=== PATIENT | female | born 1960 ===

== ENCOUNTER 2016-10-20 19:47 | Emergency (ER) | payer MEDICARE, MEDICAID ==
[2016-10-20 18:34] LABS: BASO % 0.3 % (0-2); EOS % 6.8 % (0-7); EOSINOPHIL ABSOLUTE COUNT 0.6 tho/cmm (0.0-0.7); HCT-HEMATOCRIT 29.4 % (34.0-49.0); HGB-HEMOGLOBIN 9.7 gm/dl (12.0-15.5); IMMATURE GRANULOCYTES ABSOLUTE 0.03 tho/cmm (0-0.03); IMMATURE GRANULOCYTES PERCENT 0.3 % (0-0.3); LYMPH % 23.4 % (20-45); LYMPH ABSOLUTE COUNT 2.1 tho/cmm (0.8-4.5); MEAN PLATELET VOLUME 9.9 cmc (9.4-12.4); MONO % 4.3 % (0-12); MONOCYTE ABSOLUTE COUNT 0.4 tho/cmm (0.0-1.2); NEUTROPHIL ABSOLUTE COUNT 5.8 tho/cmm (1.6-8.0); NEUTROPHIL-AUTOMATED 5.8 tho/cmm (1.6-8.0); NEUTROPHILS % 64.9 % (40-80); PLATELET COUNT 221 tho/cmm (150-450); RED BLOOD COUNT 3.34 mil/cmm (4.00-5.20); RED CELL DISTRIBUTION WIDTH 15.3 % (12.4-16.4)
[2016-10-20 18:52] LABS: ALB/GLOB RATIO 0.8 (0.8-2.0); ALBUMIN 3.4 g/dl (3.5-5.0); ALKALINE PHOSPHATASE 131 U/L (33-138); ALT/SGPT 12 U/L (12-78); ANION GAP 23 mmol/L (0-20); AST/SGOT 8 U/L (10-40); BILIRUBIN,TOTAL 0.3 mg/dl (0-1.5); BLOOD UREA NITROGEN 106 mg/dl (6-24); C-REACTIVE PROTEIN 2.6 mg/dl (0-0.9); CALCIUM 6.7 mg/dl (8.5-10.5); CARBON DIOXIDE-VENOUS 17 mmol/L (22-32); CHLORIDE 103 mmol/l (96-110); GLUCOSE 109 mg/dL (70-110); POTASSIUM 4.9 mmol/L (3.7-5.1); SODIUM 138 mmol/L (135-145); eGFR VALUE FOR BLACK 3 mL/Min
[2016-10-20 18:57] LABS: ESR-ERYTHROCYTE SED RATE 69 mm/hr (0-30)
[~2016-10-20 19:47] MED LIST: ADVAIR 2501 DISK W/D; ALBUTEROL INH 0.3 ML AERO NEB; ALBUTEROL INHALER INH; ALBUTEROL0.83 MG/ML INH; ALBUTEROL17 GM; ALBUTEROL2.5 MG/0.1 IH; ALLERGY10 M3 PO; AMARYL; AMARYL2 MG; ANTACID650 MG PO; ANTIVERT25 M1 PO; ARTIFICIAL TEAR15 M8 OP; ATORVASTATIN CA20 M1 PO; B-1100 MG PO; BACTROBAN15 GM TP; BENGAY113 G1 TP; BENGAY85 GM TP; BOOST237 ML PO; CALCIUM ACETAT667 M1 PO; CALCIUM ACETAT667 M3 PO; CALCIUM ACETAT667 MG PO; CALCIUM CARBON600 M2 PO; CERTAGEN1 TAB; CLARITIN10 M2 PO; CLARITIN10 M8 PO; CLARITIN10 MG; CLOTRIMAZOLE15 G2 TP; COZAAR100 M1 PO; COZAAR100 MG PO; COZAAR50 M1 PO; COZAAR50 MG; CPAP; DETROL LA; DETROL LA2 MG; DOCUSATE CALCI100 MG PO; DOCUSATE SODIUM PO; DOK100 M2 PO; EPINEPHRIN0.3 MG/0.2 IM; FAMOTIDINE20 MG; FLUOXETINE HCL20 MG; FLUTICASONE PRO16 G1; FLUTICASONE PRO16 GM NS; FOLIC ACID1 M1 PO; FOLIC ACID1 MG PO; GLIPIZIDE ER10 M1 PO; GLIPIZIDE10 M2 PO; GLYCOLAX527 GM; GUAIFENESIN200 M3 PO; HUMALOG100 U/ML SQ; HYDROCODON-ACE1 EA16 PO; ISONIAZID100 MG PO; K-DUR20 MEQ; KEFLEX250 M2 PO; LANTUS SOL100 UNIT/1 SC; LANTUS SOL100 UNIT/1 SQ; LANTUS100 U/ML SC; LANTUS100 UNITS/ SC; LASIX40 MG; LEVAQUIN250 M3 PO; LEVAQUIN500 M1 PO; LEVAQUIN500 MG PO; LIDODERM PATCH; LIDODERM1 EACH TP; LIDODERM30 EA TP; LIDODERM700 MG TP; LIPITOR20 M1 PO; LIPITOR40 MG PO; LOPERAMIDE2 M2 PO; MECLIZINE HCL25 M3 PO; METAMUCIL425 GM PO; MICRO-K 1010 MEQ; MIRALAX17 G2 PO; MUCINEX1200 MG PO; MUCINEX600 MG; MULTIVITAMIN1 TAB PO; MULTIVITAMINS1 EAC6 PO; MULTIVITAMINS1 EAC7 PO; NASONEX17 GM; NEURONTIN100 M1 PO; NORCO 5-325 TA1 EACH PO; NORCO 5/325 TAB1 TAB PO; NORCO 5/3251 TA2 NG; NORCO 5/3251 TAB PO; NORCO PO; NORVASC; NORVASC10 M2 PO; NORVASC2.5 MG; NORVASC5 M2 PO; NOVOLIN 70100 UNITS/; NOVOLOG FL100 UNIT/2 SC; NOVOLOG FL100 UNIT/2 SQ; NOVOLOG100 U/M SQ; NOVOLOG100 UNITS/ SC; PERCOCET 5-3251 EACH PO; PHOSLO667 M1 PO; POTASSIUM CITR10 MEQ PO; PRED FORTE1 ML OP; PRED FORTE5 ML OP; PREDNISONE20 M1 PO; PREDNISONE20 MG; PROZAC10 M1 PO; PROZAC10 MG PO; PYRIDOXINE HCL25 MG PO; RHINOCORT AQUA8.6 GM; SENNA8.6 MG; SODIUM BICARBO650 M1 PO; SODIUM BICARBO650 MG; SPS15 GM/601 PO; TUMS PO; TUMS200 MG PO; TUSSIONEX PENN473 ML PO; TYLENOL325 M2 PO; UROCIT-K10 MEQ; VENTOLIN HFA18 G2 IH; VENTOLIN HFA18 G2 INH; VENTOLIN HFA18 GM IH; VIBRAMYCIN PO; VIBRAMYCIN100 MG PO; VITAMIN B-1100 M3 PO; VITAMIN C500 M3 PO; VITAMIN C500 MG PO; VITAMIN D31000 UNIT PO; [UNRECOGNIZED DRUG - REMARK]; [UNRECOGNIZED DRUG - REMARK] OP
== END 2016-10-20 20:55 ==
LOC: EDMED 19:47
PROVIDERS: Nurse Practitioner Family
DX: R51 Headache (principal); E11.22 Type 2 diabetes mellitus with diabetic chronic kidney disease; I12.0 Hypertensive chronic kidney disease with stage 5 chronic kidney disease or end stage renal disease; N18.6 End stage renal disease; J44.9 Chronic obstructive pulmonary disease, unspecified; Z99.2 Dependence on renal dialysis; Z79.4 Long term (current) use of insulin; Z79.899 Other long term (current) drug therapy
CPT/HCPCS: J0780; J1200; J7030

== ENCOUNTER 2016-12-26 09:38 | Inpatient (IN) | payer MEDICARE, MEDICAID ==
[2016-12-26] MEDS ORDERED: TUMS200 MG PO (11:04)
[2016-12-26] MEDS ORDERED: FLONASE ALLERG9.9 ML (11:05)
[2016-12-26] MEDS ORDERED: CATAPRES0.1 M1 PO (11:06)
[2016-12-26 11:19] LABS: BASO % 0.1 % (0-2); EOS % 1.2 % (0-7); EOSINOPHIL ABSOLUTE COUNT 0.1 tho/cmm (0.0-0.7); HCT-HEMATOCRIT 32.1 % (34.0-49.0); HGB-HEMOGLOBIN 10.4 gm/dl (12.0-15.5); IMMATURE GRANULOCYTES ABSOLUTE 0.02 tho/cmm (0-0.03); IMMATURE GRANULOCYTES PERCENT 0.2 % (0-0.3); LYMPH % 3.5 % (20-45); LYMPH ABSOLUTE COUNT 0.4 tho/cmm (0.8-4.5); MCH (MEAN CORPUSCULAR HGB) 27.9 pg (28.0-32.0); MCHC MEAN CORPUSCULAR HGB CONC 32.4 % (32.0-36.0); MCV (MEAN CELL VOLUME) 86.1 fl (82.0-96.0); MEAN PLATELET VOLUME 10.2 cmc (9.4-12.4); MONO % 1.4 % (0-12); MONOCYTE ABSOLUTE COUNT 0.2 tho/cmm (0.0-1.2); NEUTROPHIL ABSOLUTE COUNT 10.7 tho/cmm (1.6-8.0); NEUTROPHIL-AUTOMATED 10.7 tho/cmm (1.6-8.0); NEUTROPHILS % 93.6 % (40-80); PLATELET COUNT 168 tho/cmm (150-450); RED BLOOD COUNT 3.73 mil/cmm (4.00-5.20); RED CELL DISTRIBUTION WIDTH 15.4 % (12.4-16.4); WHITE BLOOD COUNT 11.4 tho/cmm (4.0-10.0)
[2016-12-26 11:33] LABS: ALB/GLOB RATIO 0.7 (0.8-2.0); ALBUMIN 3.1 g/dl (3.5-5.0); ALKALINE PHOSPHATASE 128 U/L (33-138); ALT/SGPT 21 U/L (12-78); ANION GAP 26 mmol/L (0-20); AST/SGOT 15 U/L (10-40); BILIRUBIN,TOTAL 0.4 mg/dl (0-1.5); BLOOD UREA NITROGEN 130 mg/dl (6-24); CALCIUM 6.7 mg/dl (8.5-10.5); CARBON DIOXIDE-VENOUS 14 mmol/L (22-32); CHLORIDE 102 mmol/l (96-110); GLUCOSE 88 mg/dL (70-110); LIPASE 198 U/L (73-393); POTASSIUM 5.7 mmol/L (3.7-5.1); SODIUM 136 mmol/L (135-145); eGFR VALUE FOR BLACK 3 mL/Min
[2016-12-26 14:18] LABS: URINE BILIRUBIN NEGATIVE (NEG); URINE BLOOD MODERATE (NEG); URINE GLUCOSE (UA) SMALL (NEG); URINE KETONE NEGATIVE (NEG); URINE LEUKOCYTE ESTERASE POSITIVE (NEG); URINE NITRITE POSITIVE (NEG); URINE PROTEIN LARGE (NEG)
[2016-12-26 14:22] LABS: URINE APPEARANCE HAZY; URINE COLOR PALE YELLOW
[2016-12-26 14:32] LABS: URINE BACTERIA 3+; URINE WBC 200-250 /[HPF] (0-5)
[2016-12-26 14:33] LABS: URINE OTHER CLUE CELLS NOTED.
--- NOTE | 2016-12-26 19:30 | NUR ---
VIRTUAL CARE NOTE: ASSESSMENT DEFERRED. PT. SLEEPING.
[2016-12-27 05:21] LABS: BASO % 0.2 % (0-2); EOS % 1.1 % (0-7); EOSINOPHIL ABSOLUTE COUNT 0.2 tho/cmm (0.0-0.7); HGB-HEMOGLOBIN 9.8 gm/dl (12.0-15.5); IMMATURE GRANULOCYTES ABSOLUTE 0.03 tho/cmm (0-0.03); IMMATURE GRANULOCYTES PERCENT 0.2 % (0-0.3); LYMPH % 6.2 % (20-45); LYMPH ABSOLUTE COUNT 0.9 tho/cmm (0.8-4.5); MCH (MEAN CORPUSCULAR HGB) 28.2 pg (28.0-32.0); MCHC MEAN CORPUSCULAR HGB CONC 32.7 % (32.0-36.0); MCV (MEAN CELL VOLUME) 86.2 fl (82.0-96.0); MEAN PLATELET VOLUME 9.8 cmc (9.4-12.4); MONO % 3.4 % (0-12); MONOCYTE ABSOLUTE COUNT 0.5 tho/cmm (0.0-1.2); NEUTROPHILS % 88.9 % (40-80); PLATELET COUNT 127 tho/cmm (150-450); RED BLOOD COUNT 3.48 mil/cmm (4.00-5.20); RED CELL DISTRIBUTION WIDTH 15.4 % (12.4-16.4); WHITE BLOOD COUNT 14.6 tho/cmm (4.0-10.0)
[2016-12-27 05:36] LABS: CALCIUM 6.6 mg/dl (8.5-10.5); CARBON DIOXIDE-VENOUS 27 mmol/L (22-32); CHLORIDE 98 mmol/l (96-110); GLUCOSE 102 mg/dL (70-110); MAGNESIUM 1.9 mg/dl (1.8-2.6); PHOSPHOROUS 5.2 mg/dl (2.5-4.9); SODIUM 136 mmol/L (135-145); eGFR VALUE FOR BLACK 5 mL/Min
[2016-12-27 05:50] LABS: ANION GAP 16 mmol/L (0-20); BLOOD UREA NITROGEN 60 mg/dl (6-24); CREATININE 9.43 mg/dl (0.50-1.10); POTASSIUM 4.7 mmol/L (3.7-5.1)
--- NOTE | 2016-12-27 21:42 | NUR ---
VIRTUAL CARE NOTE: ASSESSMENT DEFERRED. ATTEMPTED TO ROUND X2. PT EITHER NOT IN ROOM OR SLEEPING. WILL CONTINUE WITH CHART REVIEW.
[2016-12-28 04:46] LABS: BASO % 0.3 % (0-2); EOS % 2.8 % (0-7); EOSINOPHIL ABSOLUTE COUNT 0.3 tho/cmm (0.0-0.7); HCT-HEMATOCRIT 31.1 % (34.0-49.0); HGB-HEMOGLOBIN 9.9 gm/dl (12.0-15.5); IMMATURE GRANULOCYTES ABSOLUTE 0.03 tho/cmm (0-0.03); IMMATURE GRANULOCYTES PERCENT 0.3 % (0-0.3); LYMPH % 10.5 % (20-45); LYMPH ABSOLUTE COUNT 1.2 tho/cmm (0.8-4.5); MCH (MEAN CORPUSCULAR HGB) 28.2 pg (28.0-32.0); MCHC MEAN CORPUSCULAR HGB CONC 31.8 % (32.0-36.0); MCV (MEAN CELL VOLUME) 88.6 fl (82.0-96.0); MEAN PLATELET VOLUME 10.1 cmc (9.4-12.4); MONO % 3.4 % (0-12); MONOCYTE ABSOLUTE COUNT 0.4 tho/cmm (0.0-1.2); NEUTROPHIL ABSOLUTE COUNT 9.7 tho/cmm (1.6-8.0); NEUTROPHIL-AUTOMATED 9.7 tho/cmm (1.6-8.0); NEUTROPHILS % 82.7 % (40-80); PLATELET COUNT 140 tho/cmm (150-450); RED BLOOD COUNT 3.51 mil/cmm (4.00-5.20); RED CELL DISTRIBUTION WIDTH 15.4 % (12.4-16.4); WHITE BLOOD COUNT 11.7 tho/cmm (4.0-10.0)
[2016-12-28 05:17] LABS: ANION GAP 14 mmol/L (0-20); BLOOD UREA NITROGEN 27 mg/dl (6-24); CALCIUM 6.7 mg/dl (8.5-10.5); CARBON DIOXIDE-VENOUS 26 mmol/L (22-32); CHLORIDE 98 mmol/l (96-110); CREATININE 6.48 mg/dl (0.50-1.10); GLUCOSE 97 mg/dL (70-110); MAGNESIUM 1.7 mg/dl (1.8-2.6); PHOSPHOROUS 4.4 mg/dl (2.5-4.9); POTASSIUM 4.3 mmol/L (3.7-5.1); SODIUM 134 mmol/L (135-145); eGFR VALUE FOR BLACK 8 mL/Min
--- NOTE | 2016-12-28 14:14 | NUR ---
VIRTUAL CARE NOTE: ATTEMPTED VISIT W/ PT--SHE IS SLEEPING WITH CPAP IN PLACE. WILL NOT DISTURB HER AT THIS TIME. ELECTRONIC CHART REVIEWED.
--- NOTE | 2016-12-29 12:26 | NUR ---
VIRTUAL CARE NOTE: PT RESTING ON BED, STATES DOING VERY GOOD TODAY, PLAN DC HOME TOMORROW. PT STATES SHE HAS 3 DAUGHTERS AT HOME TO HELP HER, DOES NOT NEED ANY HELP AT DISCHARGE. PT DENIES ANY CONCERNS OR NEEDS AT THIS TIME.
--- NOTE | 2016-12-29 19:42 | NUR ---
VIRTUAL CARE NOTE: PT. IN BED, DENIES NEEDS AT THIS TIME OR QUESTIONS REGARDING CARE. PT. C/O OF H/A ONLY. RN ON UNIT NOTIFIED. INSTRUCTED TO CALL FOR FURTHER NEEDS. STATES VERBAL AGREEMENT.
[2016-12-30 05:17] LABS: BASO % 0.4 % (0-2); EOS % 8.4 % (0-7); EOSINOPHIL ABSOLUTE COUNT 0.7 tho/cmm (0.0-0.7); HCT-HEMATOCRIT 29.4 % (34.0-49.0); HGB-HEMOGLOBIN 9.4 gm/dl (12.0-15.5); IMMATURE GRANULOCYTES ABSOLUTE 0.04 tho/cmm (0-0.03); IMMATURE GRANULOCYTES PERCENT 0.5 % (0-0.3); LYMPH % 24.4 % (20-45); LYMPH ABSOLUTE COUNT 2.1 tho/cmm (0.8-4.5); MCH (MEAN CORPUSCULAR HGB) 27.8 pg (28.0-32.0); MEAN PLATELET VOLUME 10.2 cmc (9.4-12.4); MONO % 4.8 % (0-12); MONOCYTE ABSOLUTE COUNT 0.4 tho/cmm (0.0-1.2); NEUTROPHIL ABSOLUTE COUNT 5.3 tho/cmm (1.6-8.0); NEUTROPHIL-AUTOMATED 5.3 tho/cmm (1.6-8.0); NEUTROPHILS % 61.5 % (40-80); PLATELET COUNT 175 tho/cmm (150-450); RED BLOOD COUNT 3.38 mil/cmm (4.00-5.20); RED CELL DISTRIBUTION WIDTH 14.8 % (12.4-16.4); WHITE BLOOD COUNT 8.5 tho/cmm (4.0-10.0)
[2016-12-30 05:39] LABS: ALBUMIN 2.5 g/dl (3.5-5.0); ANION GAP 15 mmol/L (0-20); BLOOD UREA NITROGEN 45 mg/dl (6-24); CALCIUM 7.5 mg/dl (8.5-10.5); CARBON DIOXIDE-VENOUS 29 mmol/L (22-32); CHLORIDE 98 mmol/l (96-110); CREATININE 8.09 mg/dl (0.50-1.10); GLUCOSE 93 mg/dL (70-110); MAGNESIUM 1.8 mg/dl (1.8-2.6); PHOSPHOROUS 5.2 mg/dl (2.5-4.9); POTASSIUM 4.2 mmol/L (3.7-5.1); SODIUM 138 mmol/L (135-145); eGFR VALUE FOR BLACK 6 mL/Min
[2016-12-30] MEDS ORDERED: KEFLEX500 M4 PO (15:58)
--- NOTE | 2016-12-30 16:14 | NUR ---
VIRTUAL CARE NOTE: PT DRESSED SITTING ON CHAIR READY FOR DISCHARGE INSTRUCTIONS. INFORMATION GIVEN TO PT, NO QUESTIONS OR CONCERNS. INFORMED FLOOR NURSED DISCHARGE TEACHING DONE.
== END 2016-12-30 16:20 | DRG 871 ==
LOC: EDMED 09:38 → EMR2 15:23 → 5WD 19:12 → ORW 12-27 17:49 → PACU 12-27 18:45 → 5WD 12-27 19:25
PROVIDERS: Family Medicine; Internal Medicine; Internal Medicine Nephrology; Nurse Practitioner Family; ADMIT Hospitalist
PROC: 5A1D60Z (ICD-10-PCS; 2016-12-26)
PROC: 0T768DZ Dilation of Right Ureter with Intraluminal Device, Via Natural or Artificial Opening Endoscopic (ICD-10-PCS; principal; 2016-12-27)
PROC: BT1DZZZ Fluoroscopy of Right Kidney, Ureter and Bladder (ICD-10-PCS; 2016-12-27)
DX: A41.51 Sepsis due to Escherichia coli [E. coli] (principal); N18.6 End stage renal disease; E11.22 Type 2 diabetes mellitus with diabetic chronic kidney disease; N25.81 Secondary hyperparathyroidism of renal origin; I12.0 Hypertensive chronic kidney disease with stage 5 chronic kidney disease or end stage renal disease; N12 Tubulo-interstitial nephritis, not specified as acute or chronic; N20.1 Calculus of ureter; N39.0 Urinary tract infection, site not specified; E87.5 Hyperkalemia; Z16.23 Resistance to quinolones and fluoroquinolones; J02.9 Acute pharyngitis, unspecified; D63.1 Anemia in chronic kidney disease; J44.9 Chronic obstructive pulmonary disease, unspecified; E83.51 Hypocalcemia; Z99.2 Dependence on renal dialysis; Z79.899 Other long term (current) drug therapy; Z79.4 Long term (current) use of insulin
CPT/HCPCS: C1769; C2617; J0885; J1650; J1815; J1956; J2270; J2405; J3370; J7030; J7050; Q9967